=== PATIENT | female | born 1955 ===

== ENCOUNTER 2022-08-27 07:36 | Inpatient (IN) | payer OTHER ==
[~2022-08-27] VITALS: Ht 160 cm; Wt 63.0 kg
[~2022-08-27 07:36] MED LIST: NORVASC5 MG PO; VALSARTAN-HCTZ1 EAC1 PO
[2022-08-31] MEDS ORDERED: PEPCID AC20 MG PO (10:30)
[2022-08-31] MEDS ORDERED: HYOSCYAMINE0.125 M1 SL (10:30)
[2022-08-31] MEDS ORDERED: TRAM1TAB98 PO (10:30)
[2022-08-31] MEDS ORDERED: IMODIUM A-D2 MG PO (10:31)
== END 2022-08-31 13:34 | disposition home or self-care (01) | DRG 330 ==
LOC: CIR.AMB 07:36 → SURG 16:07 → O/R 16:07 → SURG 16:11
PROVIDERS: ADMIT Colon & Rectal Surgery; ATTEND Colon & Rectal Surgery
PROC: 0DTP4ZZ Resection of Rectum, Percutaneous Endoscopic Approach (ICD-10-PCS; 2022-08-27)
PROC: 0DTN4ZZ Resection of Sigmoid Colon, Percutaneous Endoscopic Approach (ICD-10-PCS; 2022-08-27)
PROC: 07BC4ZZ Excision of Pelvis Lymphatic, Percutaneous Endoscopic Approach (ICD-10-PCS; 2022-08-27)
PROC: 0DJD8ZZ Inspection of Lower Intestinal Tract, Via Natural or Artificial Opening Endoscopic (ICD-10-PCS; 2022-08-27)
PROC: 0D1B4Z4 Bypass Ileum to Cutaneous, Percutaneous Endoscopic Approach (ICD-10-PCS; principal; 2022-08-27 12:15)
DX: C19 Malignant neoplasm of rectosigmoid junction (principal); K92.1 Melena; I10 Essential (primary) hypertension; Z20.822 Contact with and (suspected) exposure to COVID-19; Z93.2 Ileostomy status

== ENCOUNTER 2022-11-28 08:14 | Outpatient (CLI) | payer OTHER ==
[~2022-11-28 08:14] MED LIST changes: +HYOSCYAMINE0.125 M1 SL; +IMODIUM A-D2 MG PO; +PEPCID AC20 MG PO; +TRAM1TAB98 PO
== END 2022-11-28 08:18 | disposition home or self-care (01) ==
LOC: RX STUDY 08:14
PROVIDERS: ATTEND Colon & Rectal Surgery
DX: C20 Malignant neoplasm of rectum (principal)